=== PATIENT | male | born 1960 | race Caucasian/White ===

== ENCOUNTER 2023-06-01 00:33 | Emergency (ER) | payer SELFPAY ==
[2023-06-01] MEDS ORDERED: BUPIVACAINE 0.5% PF 10 ML VIAL ONE (00:53)
[2023-06-01] MEDS ORDERED: MORPHINE 4 MG/ML SYR ONE (00:53)
[2023-06-01] MEDS ORDERED: LIDOCAINE 1% 20 ML MDV ONE (00:54)
[2023-06-01] MEDS ORDERED: KETOROLAC 30 MG/ML INJ ONE (00:54)
[2023-06-01] MEDS ORDERED: TDAP (DIPHTH,PERTUSS(ACELL),TET VAC) 0.5 ML VIAL IMVAC ONE (00:54)
[2023-06-01] MEDS ORDERED: ONDANSETRON 4 MG/2 ML VIAL ONE (00:54)
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
[2023-06-01 01:27] LABS: Protime INR 1.02
[2023-06-01 01:28] LABS: Hematocrit 42.8 % (39.6-49.0); MCV 88.4 fL (80-100); MPV 9.4 fL (7.6-11.3); Platelets 171 thou/uL (152-406); RBC Red Blood Cell Count 4.84 M/uL (4.33-5.43)
[2023-06-01] MEDS ORDERED: CEFAZOLIN SODIUM 1 GM/VIAL ONE (01:31)
[2023-06-01] MEDS ORDERED: HYDROMORPHONE HCL 1 MG/ML INJ ONE (01:31)
[2023-06-01] MEDS ORDERED: NA CHLORIDE 0.9% 1,000 ML ONE (01:32)
[2023-06-01] MEDS ORDERED: NA CHLORIDE 0.9% 100 ML ONE (01:32)
[2023-06-01 01:33] LABS: Albumin 3.5 g/dL (3.4-5.0); Bilirubin Total 0.3 mg/dL (0.2-1.0); Potassium 3.3 mEq/L (3.5-5.1); Protein, Total 7.1 g/dL (6.4-8.2)
[2023-06-01 03:12] VITALS: BP 155/85; TEMP 98; O2SAT 97
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
== END 2023-06-01 02:54 | disposition short-term general hospital (02) ==
LOC: ER 00:33
DX: S62.613B Displaced fracture of proximal phalanx of left middle finger, initial encounter for open fracture (principal); W32.0XXA Accidental handgun discharge, initial encounter
CPT/HCPCS: 36415; 71045; 80053; 85027; 85610; 96365; 96372; 96375; 99285; J0690; J1170; J2001; J2405; J7030